=== PATIENT | male | born 1985 | race Caucasian/White ===

== ENCOUNTER 2022-09-19 03:02 | Emergency (ER) | payer BC ==
[~2022-09-19] VITALS: Ht 185.4 cm; Wt 95.3 kg
--- NOTE | 2022-09-19 03:02 | NUR ---
[id number] FROM [address] BYSTANDER CALLED [facility] [facility] PATIENT PASSED OUT. +ETOH INTOXICATION. AAOX4. PLACED COMFORTABLY IN BED, VITALS CHECKED.
--- NOTE | 2022-09-19 04:29 | NUR ---
Patient discharged to home in stable condition. Written and verbal after care instructions given. Patient verbalizes understanding of instruction.
[2022-09-19 04:35] VITALS: BP 129/76
== END 2022-09-19 04:36 | disposition home or self-care (01) ==
LOC: ER 03:15
DX: F10.129 Alcohol abuse with intoxication, unspecified (principal); Z60.2 Problems related to living alone; Y90.9 Presence of alcohol in blood, level not specified